=== PATIENT | female | born 1955 | race Caucasian/White ===

== ENCOUNTER 2019-03-12 09:27 | Day surgery (SDC) | payer OTHER ==
[2019-03-09 12:04] LABS: Basophils % 0.7 % (0-1.3); Hematocrit 35.3 % (36.0-45.0); Lymphocytes % 19.3 % (15.3-44.8); MPV 7.3 fL (7.6-11.3); RBC Red Blood Cell Count 4.16 M/uL (3.86-4.86)
[2019-03-09 12:11] LABS: Potassium 3.9 mmol/L (3.5-5.1)
--- NOTE | 2019-03-09 12:38 | RAD REPORT ---
EXAM DESCRIPTION: Padmini Cardenas (2 Views)03/09/2019 12:23 pm CLINICAL HISTORY: Preop for I and D of boils COMPARISON: None FINDINGS: The lungs appear clear of acute infiltrate. The heart is mildly enlarged. Postsurgical changes involve the chest. IMPRESSION: No acute abnormalities displayed
--- OUTSIDE RECORDS SUMMARY | 2019-03-12 09:29 | XMS REPORT ---
:1955 [facility] Address [address] Shah [address] [place] [address] Care Team Providers Name Role Phone Unavailable Unavailable Unavailable Problems This patient has no known problems. Allergies, Adverse Reactions, Alerts This patient has no known allergies or adverse reactions. Medications This patient has no known medications.
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
--- OUTSIDE RECORDS SUMMARY | 2019-03-12 09:30 | XMS REPORT | Summary of Care ---
:1955 Author Organization [facility] Address [address] [place] [address] Care Team Providers Name Role Phone Wes Hendrickson MD Primary Care Provider Reason for Visit Reason Comments Refill Request Encounter Details Date Type Department Care Team Description 09/02/2018 Refill [facility] Family Medicine Wes Hendrickson MD Refill Request - [address] [phone] [place] [phone] Allergies Active Allergy Reactions Severity Noted Date Comments Pregabalin Rash 03/24/2017 documented as of this encounter (statuses as of 09/04/2018) Medications Medication Sig Dispensed Refills Start Date End Date Status Nebulizer Accessories Use as directed 1 Kit 0 11/26/2014 Active (REUSABLE NEBULIZER KIT) Kit nitroglycerin Place 1 Tab under 1 Bottle 1 11/26/2014 Active (NITROSTAT) 0.4 mg the tongue every sublingual tablet 5 (five) minutes as needed for Chest pain. ipratropium-albuterol Inhale 3 mL 4 100 Vial 12 03/24/2017 Active 0.5 mg-3 mg(2.5 mg (four) times base)/3 mL nebulizer daily. solutionIndications: COPD exacerbation levothyroxine 137 mcg Take 1 tablet by 30 tablet 12 03/24/2017 Active tabletIndications: mouth every Hypothyroidism, morning. unspecified type ALBUTEROL 0.63 mg/3 mL USE 3 ML VIA 300 mL 0 04/06/2018 Active nebulizer NEBULIZER FOUR solutionIndications: TIMES DAILY COPD exacerbation DIRECTED NEEDED FOR WHEEZING TOUJEO SOLOSTAR U-300 INJECT 50 UNITS 3 Syringe 12 05/16/2018 Active INSULIN 300 unit/mL UNDER THE SKIN (1.5 mL) DAILY InPnIndications: Uncontrolled type 2 diabetes mellitus with diabetic neuropathy, with long-term current use of insulin benzonatate 200 mg Take 1 capsule by 20 capsule 0 05/17/2018 Active capsuleIndications: mouth 3 (three) (HFpEF) heart failure times daily as with preserved needed for Cough. ejection fraction budesonide-formoterol Inhale 2 Puffs 2 10.2 g 12 06/19/2018 Active 160-4.5 mcg/actuation (two) times inhaler daily. albuterol 90 Inhale 2 Puffs 8.5 g 11 06/19/2018 Active mcg/actuation every 6 (six) inhalerIndications: hours as needed Bronchitis for Wheezing or Shortness of Breath. ACCU-CHEK GUIDE strip TEST DAILY AND 3 04/12/2018 Active PRN BD ULTRAFINE III MINI USE FOR VICTOZA 100 Each 0 07/04/2018 Active PEN 31 gauge x 3/16" AND TOUJEO DAILY Ndle DIRECTED gabapentin 600 mg Take 600 mg by 0 Active tablet mouth 2 (two) times daily. ELIQUIS 2.5 mg TAKE 1 TABLET BY 60 tablet 0 08/03/2018 Active tabletIndications: MOUTH TWICE DAILY Atrial fibrillation, unspecified type LEVOTHYROXINE 137 mcg TAKE 1 TABLET BY 30 tablet 0 09/04/2018 Active tabletIndications: MOUTH EVERY Hypothyroidism, MORNING unspecified type documented as of this encounter (statuses as of 09/04/2018) Active Problems Problem Noted Date PAF (paroxysmal [...] with hypoxia 05/07/2018 Coronary artery disease involving [place] coronary artery of [place] heart 05/07 with angina pectoris Diabetes mellitus 03/24/2017 Hypothyroidism 03/24/2017 Hidradenitis suppurativa 03/02/2017 Overview: Bilateral axilla Axillary abscess 02/18/2017 COPD exacerbation 02/16/2017 Morbid obesity with body mass index of 40.0-49.9 02/16/2017 NSTEMI (non-ST elevated myocardial infarction) 11/19/2014 Coronary artery disease involving coronary bypass graft of [place] heart 2014 with unstable angina pectoris Chest pain 11/18/2014 Atrial fibrillation 11/18/2014 Atrial fibrillation with RVR 11/18/2014 PAD (peripheral artery disease) 11/18/2014 Obesity 11/18/2014 TRUDY on CPAP 11/18/2014 COPD (chronic obstructive pulmonary disease) 11/18/2014 Chronic kidney disease, stage IV (severe) 11/18/2014 Essential hypertension 11/18/2014 HLD (hyperlipidemia) 11/18/2014 documented as of this encounter (statuses as of 09/04/2018) Immunizations Name Administration Dates Next Due Influenza [...] of this encounter Last Filed Vital Signs Not on filedocumented in this encounter Plan of Treatment Date Type Specialty Care Team Description 09/06/2018 Office Visit Cardiology Kristine Medina MD [address] [place] [address] [place] [id number] 10/26/2018 Office Visit Pulmonary Disease Jada Arellano DO [address] [place] [phone] Health Maintenance Due Date Last Done Comments [...] filedocumented in this encounter Visit Diagnoses Diagnosis Hypothyroidism, unspecified type documented in this encounter Insurance Payer Benefit Plan / Subscriber ID Effective Phone Address Type Group Dates [place] [id number] 2018-Prese Medicare Adv HEALTHCARE - HEALTHCARE nt PPO MANAGED MEDICARE [employer] documented as of this encounter
--- OUTSIDE RECORDS SUMMARY | 2019-03-12 09:30 | XMS REPORT | Summary of Care ---
:1955 Author Organization [facility] Address [address] [place] [address] Care Team Providers Name Role Phone Wes Hendrickson MD Primary Care Provider Reason for Visit Reason Comments Refill Request Encounter Details Date Type Department Care Team Description 09/04/2018 Telephone [facility] Family Wes Hendrickson, Refill Request Medicine - Ronna DENT [address] [place] [address] [place] [address] [place] [phone] Allergies Active Allergy Reactions Severity Noted Date [...] MOUTH TWICE DAILY Atrial fibrillation, unspecified type documented as of this encounter [...] with hypoxia 05/07/2018 Coronary artery disease involving [place] coronary artery of [place] heart 05/07 with angina pectoris Diabetes mellitus 03/24/2017 Hypothyroidism 03/24/2017 Hidradenitis suppurativa 03/02/2017 Overview: Bilateral axilla Axillary abscess 02/18/2017 COPD exacerbation 02/16/2017 Morbid obesity with body mass index of 40.0-49.9 02/16/2017 NSTEMI (non-ST elevated myocardial infarction) 11/19/2014 Coronary artery disease involving coronary bypass graft of [place] heart 2014 with unstable angina pectoris Chest [...] 09/06/2018 Office Visit Cardiology Kristine Medina MD [address] [place] [address] [phone] 10/26/2018 Office Visit Pulmonary Disease Jada Arlelano DO [address] [place] [address] Health Maintenance Due Date Last Done Comments [...] Results Not on filedocumented in this encounter Insurance Payer Benefit Plan / Subscriber ID Effective Phone Address Type Group Dates [place] [id number] 2018-Prese Medicare Adv HEALTHCARE - HEALTHCARE nt PPO MANAGED MEDICARE [employer] documented as of this encounter
--- OUTSIDE RECORDS SUMMARY | 2019-03-12 09:30 | XMS REPORT | Summary of Care ---
:1955 Author Organization [facility] Address [address] [place] [address] Care Team Providers Name Role Phone Wes Hendrickson MD Primary Care Provider Reason for Visit Reason Comments Orders Encounter Details Date Type Department Care Team Description 09/05/2018 Telephone [facility] Family Medicine Wes Hendrickson MD Orders - [address] [address] [place] [address] Allergies Active Allergy Reactions Severity Noted Date Comments Pregabalin Rash 03/24/2017 documented as of this encounter (statuses as of 09/06/2018) Medications Medication Sig Dispensed Refills Start Date [...] as of this encounter (statuses as of 09/06/2018) Active Problems Problem Noted Date PAF (paroxysmal [...] with hypoxia 05/07/2018 Coronary artery disease involving [place] coronary artery of [place] 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/07 with angina pectoris Diabetes mellitus 03/24/2017 Hypothyroidism 03/24/2017 Hidradenitis suppurativa 03/02/2017 Overview: Bilateral axilla Axillary abscess 02/18/2017 COPD exacerbation 02/16/2017 Morbid obesity with body mass index of 40.0-49.9 02/16/2017 NSTEMI (non-ST elevated myocardial infarction) 11/19/2014 Coronary artery disease involving coronary bypass graft of [place] heart 2014 with unstable angina pectoris Chest pain 11/18/2014 Atrial fibrillation 11/18/2014 Atrial fibrillation with RVR 11/18/2014 PAD (peripheral artery disease) 11/18/2014 Obesity 11/18/2014 TRUDY on CPAP 11/18/2014 COPD (chronic obstructive pulmonary disease) 11/18/2014 Chronic kidney disease, stage IV (severe) 11/18/2014 Essential hypertension 11/18/2014 HLD (hyperlipidemia) 11/18/2014 documented as of this encounter (statuses as of 09/06/2018) Immunizations Name Administration Dates Next Due Influenza [...] 09/06/2018 Office Visit Cardiology Kristine Medina MD [address] [place] [address] [place] [address] [phone] 10/26/2018 Office Visit Pulmonary Disease Jada Arellano DO [address] [place] [phone] Health Maintenance Due Date Last Done Comments [...] ID Effective Phone Address Type Group Dates [facility] [id number] 2018-Prese Medicare Adv HEALTHCARE - HEALTHCARE nt PPO MANAGED MEDICARE [place] MEDICARE documented as of this encounter
--- OUTSIDE RECORDS SUMMARY | 2019-03-12 09:31 | XMS REPORT | Summary of Care ---
:1955 Author Organization [facility] Address [address] [place] [address] Care Team Providers Name Role Phone Wes Hendrickson MD Primary Care Provider Reason for Visit Reason Comments Error Encounter Details Date Type Department Care Team Description 09/12/2018 Telephone [facility] Family Medicine Wes Hendrickson MD Error - [address] [address] [place] [address] Allergies Active Allergy Reactions Severity Noted Date Comments Pregabalin Rash 03/24/2017 documented as of this encounter (statuses as of 09/12/2018) Medications Medication Sig Dispensed Refills Start Date [...] MOUTH TWICE DAILY Atrial fibrillation, unspecified type metoprolol tartrate 25 Take 1 tablet by 60 tablet 12 09/11/2018 Active mg tabletIndications: mouth 2 (two) Essential hypertension times daily. 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/07 with angina pectoris Diabetes mellitus 03/24/2017 Hypothyroidism 03/24/2017 Hidradenitis suppurativa 03/02/2017 Overview: Bilateral axilla Axillary abscess 02/18/2017 COPD exacerbation 02/16/2017 Morbid obesity with body mass index of 40.0-49.9 02/16/2017 NSTEMI (non-ST elevated myocardial infarction) 11/19/2014 Coronary artery disease involving coronary bypass graft of [place] heart 2014 with unstable angina pectoris Chest pain 11/18/2014 Atrial fibrillation 11/18/2014 Atrial fibrillation with RVR 11/18/2014 PAD (peripheral artery disease) 11/18/2014 Obesity 11/18/2014 TRUDY on CPAP 11/18/2014 COPD (chronic obstructive pulmonary disease) 11/18/2014 Chronic kidney disease, stage IV (severe) 11/18/2014 Essential hypertension 11/18/2014 HLD (hyperlipidemia) 11/18/2014 documented as of this encounter (statuses as of 09/12/2018) Immunizations Name Administration Dates Next Due Influenza [...] Office Visit Pulmonary Disease Jada Arellano DO [address] [place] [phone] 11/06/2018 Office Visit Cardiology Kristine Medina MD [address] [place] [address] [place] [address] [phone] Health Maintenance Due Date Last Done Comments [...] ID Effective Phone Address Type Group Dates [facility] [id number] 2018-Prese Medicare Adv HEALTHCARE - HEALTHCARE nt PPO MANAGED MEDICARE [employer] MEDICARE documented as of this encounter
--- OUTSIDE RECORDS SUMMARY | 2019-03-12 09:31 | XMS REPORT | Summary of Care ---
:1955 Author Organization [facility] - Health Address [address] [place] [address] Care Team Providers Name Role Phone Wes Hendrickson MD Primary Care Provider Encounter Details Date Type Department Care Team Description 09/12/2018 Orders Only [facility] Doctor Unassigned, No [address] [facility] [place] [address] [address] [place] [address] Allergies Active Allergy Reactions Severity Noted Date Comments Pregabalin Rash 03/24/2017 documented as of this encounter (statuses as of 09/22/2018) Medications Medication Sig Dispensed Refills Start Date [...] as of this encounter (statuses as of 09/22/2018) Active Problems Problem Noted Date PAF (paroxysmal [...] with hypoxia 05/07/2018 Coronary artery disease involving [place] coronary artery of [place] heart 05/07 with angina pectoris Diabetes mellitus 03/24/2017 Hypothyroidism 03/24/2017 Hidradenitis suppurativa 03/02/2017 Overview: Bilateral axilla Axillary abscess 02/18/2017 COPD exacerbation 02/16/2017 Morbid obesity with body mass index of 40.0-49.9 02/16/2017 NSTEMI (non-ST elevated myocardial infarction) 11/19/2014 Coronary artery disease involving coronary bypass graft of [place] heart 2014 with unstable angina pectoris Chest pain 11/18/2014 Atrial fibrillation 11/18/2014 Atrial fibrillation with RVR 11/18/2014 PAD (peripheral artery disease) 11/18/2014 Obesity 11/18/2014 TRUDY on CPAP 11/18/2014 COPD (chronic obstructive pulmonary disease) 11/18/2014 Chronic kidney disease, stage IV (severe) 11/18/2014 Essential hypertension 11/18/2014 HLD (hyperlipidemia) 11/18/2014 documented as of this encounter (statuses as of 09/22/2018) Immunizations Name Administration Dates Next Due Influenza [...] Office Visit Pulmonary Disease Jada Arellano DO [address] [place] [address] 11/06/2018 Office Visit Cardiology Kristine Medina MD [address] [place] [address] [place] [address] Health Maintenance Due Date Last Done Comments HEPATITIS C (HCV) SCREEN 1955 EYE EXAM 1965 URINE MICROALBUMIN 1966 FOOT EXAM 1974 DTaP,Tdap,and Td Vaccines (1 - 11/06/1975 Tdap) MAMMOGRAM 1996 COLONOSCOPY 2006 Zoster Recombinant Vaccine 2006 (SHINGRIX) (1 of 2) LUNG CANCER SCREEN: Recommended 11/06/2011 for age 55-80 with 30 + pack year history INFLUENZA VACCINE (Retired 10/08/2018 07/10/2018 version) HgA1C 01/06/2019 07/06/2018, 05/06/2018, 03/24/2018, Additional history exists LDL-C 05/07/2019 05/06/2018, 02/18/2017, 11/19/2014 CREATININE (SERUM) 07/11/2019 07/10/2018, 07/09/2018, 07/08/2018, Additional history exists PAP SMEAR 02/24/2020 02/23/2017 (Previously completed) PNEUMOCOCCAL 0-64 YEARS COMBINED Completed 07/10/2018 SERIES documented as of this encounter Procedures Procedure Name Priority Date/Time Associated Diagnosis Comments DME/SUPPLY JUSTIFICATION Routine 09/12/2018 12:01 AM CDT documented in this encounter Results Not on filedocumented in this encounter Insurance Payer Benefit Plan / Subscriber ID Effective Phone Address Type Group Dates [facility] [id number] 2018-Prese Medicare Adv HEALTHCARE - HEALTHCARE nt PPO MANAGED MEDICARE [employer] MEDICARE documented as of this encounter
--- OUTSIDE RECORDS SUMMARY | 2019-03-12 09:31 | XMS REPORT | Summary of Care ---
:1955 Author Organization [facility] Address [address] [place] [address] Care Team Providers Name Role Phone Wes Hendrickson MD Primary Care Provider Reason for Visit Reason Comments Refill Request Encounter Details Date Type Department Care Team Description 09/11/2018 Telephone [facility] Family Wes Hendrickson, Refill Request Medicine - Ronna DENT [address] [place] [address] [place] [address] [place] [phone] Allergies Active Allergy Reactions Severity Noted Date Comments Pregabalin Rash 03/24/2017 documented as of this encounter (statuses as of 09/11/2018) Medications Medication Sig Dispensed Refills Start Date [...] as of this encounter (statuses as of 09/11/2018) Active Problems Problem Noted Date PAF (paroxysmal [...] with hypoxia 05/07/2018 Coronary artery disease involving [place] coronary artery 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/07 with angina pectoris Diabetes mellitus 03/24/2017 Hypothyroidism 03/24/2017 Hidradenitis suppurativa 03/02/2017 Overview: Bilateral axilla Axillary abscess 02/18/2017 COPD exacerbation 02/16/2017 Morbid obesity with body mass index of 40.0-49.9 02/16/2017 NSTEMI (non-ST elevated myocardial infarction) 11/19/2014 Coronary artery disease involving coronary bypass graft of [place] heart 2014 with unstable angina pectoris Chest pain 11/18/2014 Atrial fibrillation 11/18/2014 Atrial fibrillation with RVR 11/18/2014 PAD (peripheral artery disease) 11/18/2014 Obesity 11/18/2014 TRUDY on CPAP 11/18/2014 COPD (chronic obstructive pulmonary disease) 11/18/2014 Chronic kidney disease, stage IV (severe) 11/18/2014 Essential hypertension 11/18/2014 HLD (hyperlipidemia) 11/18/2014 documented as of this encounter (statuses as of 09/11/2018) Immunizations Name Administration Dates Next Due Influenza [...] Office Visit Pulmonary Disease Jada Arellano DO [address] [place] [address] 11/06/2018 Office Visit Cardiology Kristine Medina MD [address] [place] [address] [place] [address] [phone] Health Maintenance Due Date Last Done Comments [...] filedocumented in this encounter Visit Diagnoses Diagnosis Essential hypertension - Primary Unspecified essential hypertension documented in this encounter Insurance Payer Benefit Plan / Subscriber ID Effective Phone Address Type Group Dates [place] [id number] 2018-[facility] Medicare [facility] HEALTHCARE - HEALTHCARE nt PPO MANAGED MEDICARE [employer]VER MEDICARE documented as of this encounter
--- OUTSIDE RECORDS SUMMARY | 2019-03-12 09:32 | XMS REPORT | Summary of Care ---
:1955 Author Organization [facility] [place] Address [address] [place] [address] Care Team Providers Name Role Phone Wes Hendrickson MD Primary Care Provider Reason for Visit Reason Comments Refill Request Encounter Details Date Type Department Care Team Description 10/02/2018 Refill [facility] Family Medicine Wes Hendrickson MD Refill Request - [address] [address] [place] [phone] Allergies Active Allergy Reactions Severity Noted Date Comments Pregabalin Rash 03/24/2017 documented as of this encounter (statuses as of 10/05/2018) Medications Medication Sig Dispensed Refills Start Date [...] mL daily. nebulizer solutionIndications : COPD exacerbation ALBUTEROL 0.63 mg/3 USE 3 ML VIA 300 mL 0 04/06/2018 Active mL nebulizer NEBULIZER FOUR solutionIndications TIMES DAILY : COPD exacerbation DIRECTED NEEDED FOR WHEEZING TOUMARISELA SOLOSTAR INJECT 50 UNITS 3 Syringe 12 [...] Active tablet mouth 2 (two) times daily. metoprolol tartrate Take 1 tablet 60 tablet 12 09/11/2018 Active 25 mg by mouth 2 tabletIndications: (two) times Essential daily. hypertension GABAPENTIN 600 mg TAKE 1 TABLET 90 tablet 0 10/02/2018 Active tabletIndications: BY MOUTH THREE Uncontrolled type 2 TIMES DAILY diabetes mellitus with diabetic neuropathy, with long-term current use of insulin ELIQUIS 2.5 mg TAKE 1 TABLET 60 tablet 3 10/05/2018 Active tabletIndications: BY MOUTH TWICE Atrial DAILY fibrillation, unspecified type levothyroxine 137 Take 1 tablet 30 tablet 12 03/24/2017 Discontinued mcg by mouth every 9 tabletIndications: morning. Hypothyroidism, unspecified type ELIQUIS 2.5 mg TAKE 1 TABLET 60 tablet 0 08/03/2018 Discontinued tabletIndications: BY MOUTH TWICE 9 Atrial DAILY fibrillation, unspecified type documented as of this encounter (statuses as of 10/05/2018) Active Problems Problem Noted Date PAF (paroxysmal [...] with hypoxia 05/07/2018 Coronary artery disease involving [place] coronary artery of [place] heart 05/07 with angina pectoris Diabetes mellitus 03/24/2017 Hypothyroidism 03/24/2017 Hidradenitis suppurativa 03/02/2017 Overview: Bilateral axilla Axillary abscess 02/18/2017 COPD exacerbation 02/16/2017 Morbid obesity with body mass index of 40.0-49.9 02/16/2017 NSTEMI (non-ST elevated myocardial infarction) 11/19/2014 Coronary artery disease involving coronary bypass graft of [place] heart 2014 with unstable angina pectoris Chest pain 11/18/2014 Atrial fibrillation 11/18/2014 Atrial fibrillation with RVR 11/18/2014 PAD (peripheral artery disease) 11/18/2014 Obesity 11/18/2014 TRUDY on CPAP 11/18/2014 COPD (chronic obstructive pulmonary disease) 11/18/2014 Chronic kidney disease, stage IV (severe) 11/18/2014 Essential hypertension 11/18/2014 HLD (hyperlipidemia) 11/18/2014 documented as of this encounter (statuses as of 10/05/2018) Immunizations Name Administration Dates Next Due Influenza [...] Office Visit Pulmonary Disease Jada Arellano DO [address] [place] [address] 11/06/2018 Office Visit Cardiology Kristine Medina MD [address] [place] [address] [place] [phone] Health Maintenance Due Date Last Done Comments HEPATITIS C (HCV) SCREEN 1955 EYE EXAM 1965 URINE MICROALBUMIN 1966 FOOT EXAM 1974 DTaP,Tdap,and Td Vaccines (1 - 11/06/1975 Tdap) MAMMOGRAM 1996 COLONOSCOPY 2006 Zoster Recombinant Vaccine 2006 (SHINGRIX) (1 of 2) LUNG CANCER SCREEN: Recommended 11/06/2011 for age 55-80 with 30 + pack year history INFLUENZA VACCINE (#1) 2018 07/10/2018 HgA1C 01/06/2019 07/06/2018, 05/06/2018, 03/24/2018, Additional history exists LDL-C 05/07/2019 05/06/2018, 02/18/2017, 11/19/2014 CREATININE (SERUM) 07/11/2019 07/10/2018, 07/09/2018, 07/08/2018, Additional history exists PAP SMEAR 02/24/2020 02/23/2017 (Previously completed) PNEUMOCOCCAL 0-64 YEARS COMBINED Completed 07/10/2018 SERIES documented as of this encounter Results Not on filedocumented in this encounter Visit Diagnoses Diagnosis Shortness of breath Atrial fibrillation, unspecified type documented in this encounter Insurance Payer Benefit Plan / Subscriber ID Effective Phone Address Type Group Dates [facility] [id number] 2018-Prese Medicare Adv [place] - HEALTHCARE nt PPO MANAGED MEDICARE [employer] MEDICARE documented as of this encounter
--- OUTSIDE RECORDS SUMMARY | 2019-03-12 09:32 | XMS REPORT | Summary of Care ---
:1955 Author Organization [facility] Address [address] [place] [address] Care Team Providers Name Role Phone Wes Hendrickson MD Primary Care Provider Reason for Visit Reason Comments Refill Request Encounter Details Date Type Department Care Team Description 09/30/2018 Refill [facility] Family Medicine Wes Hendrickson MD Refill Request - [address] [address] [place] [phone] Allergies Active Allergy Reactions Severity Noted Date Comments Pregabalin Rash 03/24/2017 documented as of this encounter (statuses as of 10/03/2018) Medications Medication Sig Dispensed Refills Start Date [...] MOUTH TWICE Atrial DAILY fibrillation, unspecified type metoprolol tartrate Take 1 tablet 60 tablet 12 09/11/2018 Active 25 mg by mouth 2 tabletIndications: (two) times Essential daily. hypertension levothyroxine 137 Take 1 tablet 90 tablet 0 10/03/2018 Active mcg by mouth every tabletIndications: morning. Hypothyroidism, unspecified type levothyroxine 137 Take 1 tablet 30 tablet 12 03/24/2017 Discontinued mcg by mouth every 9 tabletIndications: morning. 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/07 with angina pectoris Diabetes mellitus 03/24/2017 Hypothyroidism 03/24/2017 Hidradenitis suppurativa 03/02/2017 Overview: Bilateral axilla Axillary abscess 02/18/2017 COPD exacerbation 02/16/2017 Morbid obesity with body mass index of 40.0-49.9 02/16/2017 NSTEMI (non-ST elevated myocardial infarction) 11/19/2014 Coronary artery disease involving coronary bypass graft of [place] heart 2014 with unstable angina pectoris Chest pain 11/18/2014 Atrial fibrillation 11/18/2014 Atrial fibrillation with RVR 11/18/2014 PAD (peripheral artery disease) 11/18/2014 Obesity 11/18/2014 TRUDY on CPAP 11/18/2014 COPD (chronic obstructive pulmonary disease) 11/18/2014 Chronic kidney disease, stage IV (severe) 11/18/2014 Essential hypertension 11/18/2014 HLD (hyperlipidemia) 11/18/2014 documented as of this encounter (statuses as of 10/03/2018) Immunizations Name Administration Dates Next Due Influenza [...] Office Visit Pulmonary Disease Jada Arellano DO [address] [place] [address] [phone] 11/06/2018 Office Visit Cardiology Kristine Medina MD [address] [place] [address] [place] [address] [phone] Health Maintenance Due Date Last Done Comments [...] ID Effective Phone Address Type Group Dates [id number] 2018-Prese Medicare Adv HEALTHCARE - HEALTHCARE nt PPO MANAGED MEDICARE [employer] MEDICARE documented as of this encounter
--- OUTSIDE RECORDS SUMMARY | 2019-03-12 09:32 | XMS REPORT | Summary of Care ---
:1955 Author Organization [facility] Address [address] [place] [address] Care Team Providers Name Role Phone Wes Hendrickson MD Primary Care Provider Encounter Details Date Type Department Care Team Description 10/02/2018 Orders Only [facility] Doctor Unassigned, No [address] [facility] [place] [address] [address] [place] [address] Allergies Active Allergy Reactions Severity Noted Date Comments Pregabalin Rash 03/24/2017 documented as of this encounter (statuses as of 10/27/2018) Medications Medication Sig Dispensed Refills Start Date [...] base)/3 mL nebulizer daily. solutionIndications: COPD exacerbation ALBUTEROL 0.63 mg/3 mL USE 3 ML [...] mouth 2 (two) times daily. metoprolol tartrate 25 Take 1 tablet by 60 tablet 12 09/11/2018 Active mg tabletIndications: mouth 2 (two) Essential hypertension times daily. GABAPENTIN 600 mg TAKE 1 TABLET BY 90 tablet 0 10/02/2018 Active tabletIndications: MOUTH THREE TIMES Uncontrolled type 2 DAILY diabetes mellitus with diabetic neuropathy, with long-term current use of insulin ELIQUIS 2.5 mg TAKE 1 TABLET BY 60 tablet 3 10/05/2018 Active tabletIndications: MOUTH TWICE DAILY Atrial fibrillation, unspecified type levothyroxine 137 mcg Take 1 tablet by 90 tablet 0 10/03/2018 Active tabletIndications: mouth every Hypothyroidism, morning. unspecified type documented as of this encounter (statuses as of 10/27/2018) Active Problems Problem Noted Date PAF (paroxysmal [...] with hypoxia 05/07/2018 Coronary artery disease involving [place] coronary artery of [place] heart 05/07 with angina pectoris Diabetes mellitus 03/24/2017 Hypothyroidism 03/24/2017 Hidradenitis suppurativa 03/02/2017 Overview: Bilateral axilla Axillary abscess 02/18/2017 COPD exacerbation 02/16/2017 Morbid obesity with body mass index of 40.0-49.9 02/16/2017 NSTEMI (non-ST elevated myocardial infarction) 11/19/2014 Coronary artery disease involving coronary bypass graft of [place] heart 2014 with unstable angina pectoris Chest pain 11/18/2014 Atrial fibrillation 11/18/2014 Atrial fibrillation with RVR 11/18/2014 PAD (peripheral artery disease) 11/18/2014 Obesity 11/18/2014 TRUDY on CPAP 11/18/2014 COPD (chronic obstructive pulmonary disease) 11/18/2014 Chronic kidney disease, stage IV (severe) 11/18/2014 Essential hypertension 11/18/2014 HLD (hyperlipidemia) 11/18/2014 documented as of this encounter (statuses as of 10/27/2018) Immunizations Name Administration Dates Next Due Influenza [...] Treatment Date Type Specialty Care Team Description 11/06/2018 Office Visit Cardiology Kristine Medina MD [address] [place] [address] [place] [phone] Health Maintenance Due Date Last Done Comments [...] Procedure Name Priority Date/Time Associated Diagnosis Comments INSURANCE CORRESPONDENCE Routine 10/02/2018 12:01 AM CDT documented in this encounter Results Not on filedocumented in this encounter Insurance Payer Benefit Plan / Subscriber ID Effective Phone Address Type Group Dates [facility] [id number] 2018-Prese Medicare Adv HEALTHCARE - HEALTHCARE nt PPO MANAGED MEDICARE [employer] MEDICARE documented as of this encounter
--- OUTSIDE RECORDS SUMMARY | 2019-03-12 09:32 | XMS REPORT | Summary of Care ---
:1955 Author Organization [facility] Address [address] [place] [id number] Care Team Providers Name Role Phone Wes Hendrickson MD Primary Care Provider Reason for Visit Reason Comments Refill Request Encounter Details Date Type Department Care Team Description 10/01/2018 Refill [facility] Family Medicine Wes Hendrickson MD Refill Request - [address] [phone] [place] [phone] Allergies Active Allergy Reactions Severity Noted Date Comments Pregabalin Rash 03/24/2017 documented as of this encounter (statuses as of 10/02/2018) Medications Medication Sig Dispensed Refills Start Date [...] neuropathy, with long-term current use of insulin documented as of this encounter (statuses as of 10/02/2018) Active Problems Problem Noted Date PAF (paroxysmal [...] with hypoxia 05/07/2018 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 Diabetes mellitus 03/24/2017 Hypothyroidism 03/24/2017 Hidradenitis suppurativa 03/02/2017 Overview: Bilateral axilla Axillary abscess 02/18/2017 COPD exacerbation 02/16/2017 Morbid obesity with body mass index of 40.0-49.9 02/16/2017 NSTEMI (non-ST elevated myocardial infarction) 11/19/2014 Coronary artery disease involving coronary bypass graft of [place]hoe heart 2014 with unstable angina pectoris Chest pain 11/18/2014 Atrial fibrillation 11/18/2014 Atrial fibrillation with RVR 11/18/2014 PAD (peripheral artery disease) 11/18/2014 Obesity 11/18/2014 TRUDY on CPAP 11/18/2014 COPD (chronic obstructive pulmonary disease) 11/18/2014 Chronic kidney disease, stage IV (severe) 11/18/2014 Essential hypertension 11/18/2014 HLD (hyperlipidemia) 11/18/2014 documented as of this encounter (statuses as of 10/02/2018) Immunizations Name Administration Dates Next Due Influenza [...] Office Visit Pulmonary Disease Jada Arellano DO [address] [place] [phone] 11/06/2018 Office Visit Cardiology Kristine Medina MD [address] [place] [address] [place] [id number] Health Maintenance Due Date Last Done Comments [...] filedocumented in this encounter Visit Diagnoses Diagnosis Uncontrolled type 2 diabetes mellitus with diabetic neuropathy, with long-term current use of insulin documented in this encounter Insurance Payer Benefit Plan / Subscriber ID Effective Phone Address Type Group Dates [place]AN[place]KE [id number] 2018-Prese Medicare Adv HEALTHCARE - HEALTHCARE nt O MANAGED MEDICARE [employer]VER MED[employer]ARE documented as of this encounter
[2019-03-12] MEDS ORDERED: ALBUTEROL 2.5 MG/3 ML NEB SOL ONE (09:43)
[2019-03-12] MEDS ORDERED: NA CHLORIDE 0.9% 1,000 ML ONE (09:43)
[2019-03-12] MEDS ORDERED: ALBUTEROL 2.5 MG/3 ML NEB SOL NEB ONE (09:50)
[2019-03-12] MEDS ORDERED: CEFAZOLIN/SWI 1gm 1 GM/10 ML SYR ONE (10:00)
[2019-03-12] MEDS ORDERED: LIDOCAINE 1% MPF 5 ML VIAL ONE (10:36)
[2019-03-12] MEDS ORDERED: propofoL 200 MG/20 ML VIAL IV ONE (10:36)
[2019-03-12] MEDS ORDERED: FENTANYL CITR 100 MCG/2 ML ONE (10:36)
[2019-03-12] MEDS ORDERED: MIDAZOLAM HCL 2 MG/2 ML INJ ONE (10:37)
[2019-03-12] MEDS ORDERED: Phenylephrine HCl 10 MG/ML 1 ML VIAL ONE (11:02)
[2019-03-12] MEDS ORDERED: NS 0.9% VIAL 10 ML ONE (11:02)
[2019-03-12] MEDS ORDERED: ONDANSETRON 4 MG/2 ML VIAL ONE (11:12)
--- NOTE | 2019-03-12 11:45 | P.BOP ---
Preoperative diagnosis: bilateral axillary supurative hydroadenitis, morbid obesity Postoperative diagnosis: same Primary procedure: 1.Wide excision of right axillary supurative hydroadenitis 15 x 15 cm Secondary procedure: 2. Wide excision of left axillary supurative hydroadenitis 15 x 18 cm Dressmaker Or Tailor: Chanel Maldonado) Estimated blood loss: <25cc Specimen: bilateral axillary supurative hydroadenitis Findings: axillary supurative hydroadenitis Anesthesia: General Complications: None Transferred to: Recovery Room Condition: Good
[2019-03-12] MEDS ORDERED: MORPHINE 4 MG/ML SYR ONE (12:01)
[2019-03-12] MEDS ORDERED: HYDROMORPHONE HCL 1 MG/ML INJ ONE (12:06)
--- NOTE | 2019-03-12 12:27 | EKG ---
Test Date: 2019-03-09 Test Time: 12:28:21 Global Position System Technician: ARDEN MEASUREMENT RESULTS: Intervals: Rate: 102 VT: 192 QRSD: 166 QT: 426 QTc: 555 [place]: P: 69 VT: 192 QRS: 35 T: 57 INTERPRETIVE STATEMENTS: Sinus tachycardia Right bundle branch block Inferior infarct, age undetermined Anterolateral infarct, age undetermined Abnormal ECG No previous ECG available for comparison Electronically Signed On 03-12-19 12:26:50 COREMAKING MACHINE OPERATOR by Panchito Vines
[2019-03-12 12:54] VITALS: BP 130/55; TEMP 97.8; O2SAT 94
[2019-03-12] MEDS ORDERED: HYDROCODONE/APAP 7.5/325 MG TAB ONE (13:07)
--- NOTE | 2019-03-12 22:39 | DS ---
Date of Discharge: 03/12/2019 Postoperative Diagnoses: Bilateral axillary suppurative hydradenitis, morbid obesity. Procedure: Wide excision of right and left suppurative hidradenitis. Disposition: To home. Activity: As tolerated. No heavy lifting. Followup: In the next 72 hours, dressing changes herself. If she develop any fever, before that she was asked to remove all the gauze and do wet-to-dry dressing and notify us. Medications: Include Vicodin q.4 hours p.r.n. pain, Zofran q.6 hours p.r.n. nausea, and Bactrim b.i. d. SUZI/KATE Voice ID: [id number] Report ID: [id number]
--- NOTE | 2019-03-12 22:39 | OP ---
Date of Procedure: 03/12/2019 Surgeon: Dieter Keyes MD [place] Administrator: KAREN Garcia. Preoperative Diagnoses: Bilateral axillary suppurative hidradenitis, morbid obesity. Postoperative Diagnoses: Bilateral axillary suppurative hidradenitis, morbid obesity. Procedures: 1.Wide excision of right axillary suppurativa hidradenitis, 15 x 15 cm. 2.Wide excision of left axillary suppurative hidradenitis, 15 x 18 cm. Specimen: Bilateral axillary suppurative hydradenitis. Findings: Axillary suppurative hidradenitis with abscess formation. Anesthesia: General plus local. Indications: This is the case of a 63-year-old patient fighting with this suppurative hidradenitis b ilateral axillary region. She has tried multiple techniques, not any help. She wants that excised. This will leave a large area in that area. Patient benefits and risks fully explained which include but are not limited to infection, bleeding, damage to adjacent structures, anesthesia complication, nonhealing wound, VT, and even . She also understands this may not relieve the symptoms. She m ight need more than one surgical intervention. She understands she will require wound care when the amniotic powder is removed and wet-to-dry dressing will go from there. She understands the benefits, alternatives which include, but not limited to infection, bleeding, damage to adjacent structures as complication, recurrence, VT, and even . She also understands this may not relieve symptoms, s he might need more than one surgical intervention. She understood, signed the consent. Description Of Procedure: The patient was brought to the operating room, placed in supine position. Anesthesia was done without complication. Bilateral axillary area was prepped and draped in a steri le fashion. A time-out was called. Local anesthetic was applied. We proceeded to remove all the hi dradenitis present that we marked in the holding room. In the right side it was about 15 x 15 cm. O n the left side, it was about 15 x 18 cm. Over the area, when we remove the skin and this hidradenit is, we find some little pockets of abscess here and there. With deep axillary area we did not see an y big abscess. Once this was removed, we proceeded to put the amniotic powder on that area to help h ealing and then dry gauze on top. Patient tolerated each procedure well. Patient was sent to recove ry in stable condition. SUZI/KATE Voice ID: [id number] Report ID: [id number]
== END 2019-03-12 14:02 | disposition home or self-care (01) ==
LOC: OR 09:27
PROVIDERS: ATTEND Surgery
PROC: 0JBD0ZZ Excision of Right Upper Arm Subcutaneous Tissue and Fascia, Open Approach (ICD-10-PCS; 2019-03-12)
PROC: 0JBF0ZZ Excision of Left Upper Arm Subcutaneous Tissue and Fascia, Open Approach (ICD-10-PCS; principal; 2019-03-12 11:30)
DX: L73.2 Hidradenitis suppurativa (principal); L02.412 Cutaneous abscess of left axilla; L02.411 Cutaneous abscess of right axilla; E11.22 Type 2 diabetes mellitus with diabetic chronic kidney disease; I13.0 Hypertensive heart and chronic kidney disease with heart failure and stage 1 through stage 4 chronic kidney disease, or unspecified chronic kidney disease; N18.4 Chronic kidney disease, stage 4 (severe); I50.9 Heart failure, unspecified; J44.9 Chronic obstructive pulmonary disease, unspecified; I25.10 Atherosclerotic heart disease of native coronary artery without angina pectoris; I48.91 Unspecified atrial fibrillation; E03.9 Hypothyroidism, unspecified; E78.5 Hyperlipidemia, unspecified; G47.30 Sleep apnea, unspecified; I25.2 Old myocardial infarction; E66.01 Morbid (severe) obesity due to excess calories; Z68.42 Body mass index [BMI] 45.0-49.9, adult; F17.210 Nicotine dependence, cigarettes, uncomplicated; Z90.49 Acquired absence of other specified parts of digestive tract; Z95.1 Presence of aortocoronary bypass graft; Z95.5 Presence of coronary angioplasty implant and graft; Z83.3 Family history of diabetes mellitus; Z82.49 Family history of ischemic heart disease and other diseases of the circulatory system
CPT/HCPCS: 11450 ×2; 93005; 85025; 80048; 36415; 82947 ×2; 88304; 71046; J2704; J2370; J3010; J1170; J0690; J7030; J2405; 88305; J2250